=== PATIENT | female | born 1980 | race Caucasian/White ===

== ENCOUNTER 2020-06-01 20:44 | Emergency (ER) | payer SELFPAY ==
[2020-06-01] MEDS ORDERED: Penicillin V Potassium 250 MG TAB ONE ×2 (22:16)
== END 2020-06-01 23:01 | disposition home or self-care (01) ==
LOC: BURERS 20:44
DX: K04.7 Periapical abscess without sinus (principal); K06.8 Other specified disorders of gingiva and edentulous alveolar ridge; F17.210 Nicotine dependence, cigarettes, uncomplicated
CPT/HCPCS: 87081; 87430; 99283

== ENCOUNTER 2020-11-03 16:44 | Emergency (ER) | payer SELFPAY ==
[2020-11-03 17:33] LABS: Bilirubin Negative (Negative); Blood, Urine Negative (Negative); Clarity Clear (Clear); Glucose, Urine (Dipstick) Negative (Negative); Ketone, Urine Negative (Negative); Leukocyte Negative (Negative); Nitrite Negative (Negative); Protein, Urine (Dipstick) Negative (Neg-Trace); Specific Gravity, Urine 1.015 (1.005-1.030); Urobilinogen 0.2 mg/dL (Less than 2); pH, Urine 7.5 (5.0-9.0)
[2020-11-03 17:36] LABS: Pregnancy Test - Urine (BHCG) Negative (Negative); Pregu Control Background? CLEAR/WHITE (CLR/WHITE); Pregu Control Bar Appear? YES (CONTROL BAR); Specific Gravity 1.015 (1.002-1.036)
[2020-11-03 17:44] LABS: Amphetamine Not Detected (NotDetected); Barbiturates Screen Not Detected (NotDetected); Benzodiazepine Screen Not Detected (NotDetected); Cocaine Metabolite Screen Not Detected (NotDetected); Medtox Control Line Valid? VALID (VALID); Methadone Not Detected (NotDetected); Methamphetamine Not Detected (NotDetected); Opiate Screen Not Detected (NotDetected); Oxycodone Screen Not Detected (NotDetected); Phencyclidine (PCP) Not Detected (NotDetected); THC/Cannabinoid Screen Not Detected (NotDetected); Tricyclic Screen Not Detected (NotDetected)
[2020-11-03 17:53] LABS: #Basophils 0.1 thou/uL (0.0-0.2); #Eosinphils 0.6 thou/uL (0.0-0.7); #Lymphocytes 2.4 thou/uL (1.20-3.40); #Monocytes 0.8 thou/uL (0.11-0.59); #Neutrophils 5.8 thou/uL (1.40-6.50); %Basophils 1.3 % (0.0-1.0); %Lymphocytes 24.6 % (21.0-51.0); %Monocytes 8.5 % (0.0-10.0); %Neutrophils 59.5 % (42.0-75.0); Hemoglobin 13.1 g/dL (12.0-16.0); Mean Corpuscular HGB CONC 32.9 g/dL (32.0-36.0); Mean Corpuscular Hemoglobin 33.5 pg (27.0-31.0); Mean Platelet Volume 9.7 fL (7.4-10.4); Platelet Count 270 thou/uL (130-400); Red Blood Cell (RBC) Count 3.91 mill/uL (4.20-5.40); White Blood Cell (WBC) Count 9.8 thou/uL (4.8-10.8)
[2020-11-03 18:04] LABS: ALT (SGPT) 19 U/L (8-55); AST (SGOT) 14 U/L (5-34); Albumin 4.4 g/dL (3.5-5.0); Alkaline Phosphatase 85 U/L (40-110); Anion Gap 11 mmol/L (10-20); BUN (Urea Nitrogen) 10 mg/dL (7.0-18.7); Bilirubin, Total Less than 0.2 mg/dL (0.2-1.2); Calc. Creatinine Clearance 0 mL/min (70-130); Calcium 9.3 mg/dL (7.8-10.44); Carbon Dioxide 29 mmol/L (22-29); Chloride 106 mmol/L (98-107); Globulin 2.9 g/dL (2.4-3.5); Glucose 94 mg/dL (70-105); Potassium 4.1 mmol/L (3.5-5.1); Protein, Total 7.3 g/dL (6.0-8.3); Sodium 142 mmol/L (136-145)
[2020-11-04 01:53] LABS: SARS-CoV-2 PCR by NAA Not Detected (NotDetected)
== END 2020-11-03 18:28 | disposition home or self-care (01) ==
LOC: BURERS 16:44
DX: B34.9 Viral infection, unspecified (principal); Z20.822 Contact with and (suspected) exposure to COVID-19; F17.210 Nicotine dependence, cigarettes, uncomplicated
CPT/HCPCS: 36415; 71046; 80053; 80306; 81003; 81025; 85025; 87635; U0003; U0005

== ENCOUNTER 2021-09-30 15:44 | Emergency (ER) | payer SELFPAY ==
[2021-09-30] MEDS ORDERED: cefTRIAXone\\ROCEPHIN 500 MG VIAL ONE (16:47)
[2021-09-30 16:53] LABS: Bilirubin Negative (Negative); Blood, Urine Negative (Negative); Clarity Clear (Clear); Glucose, Urine (Dipstick) Negative (Negative); Ketone, Urine Negative (Negative); Leukocyte Trace (Negative); Nitrite Negative (Negative); Protein, Urine (Dipstick) Negative (Neg-Trace); Specific Gravity, Urine 1.015 (1.005-1.030); Urobilinogen 0.2 mg/dL (Less than 2)
[2021-09-30 16:57] LABS: Pregnancy Test - Urine (BHCG) Negative (Negative)
[2021-09-30 16:58] LABS: Pregu Control Background? CLEAR/WHITE (CLR/WHITE); Pregu Control Bar Appear? YES (CONTROL BAR); Specific Gravity 1.015 (1.002-1.036)
[2021-09-30 17:06] LABS: Bacteria/HPF Rare-Few HPF (None Seen); RBC/HPF 0-3 HPF (0-3); Squamous Epithelial 0-3 HPF (0-3); WBC/HPF 0-3 HPF (0-3)
== END 2021-09-30 17:32 | disposition home or self-care (01) ==
LOC: BURERS 15:44
DX: J02.9 Acute pharyngitis, unspecified (principal); N72 Inflammatory disease of cervix uteri
CPT/HCPCS: 81003; 81015; 81025; 87081; 87430; 96372; 99283; J0696

== ENCOUNTER 2021-10-10 01:54 | Emergency (ER) | payer SELFPAY | END 2021-10-10 02:34 | disposition home or self-care (01) | LOC: BURERS 01:54 | DX: B35.9 Dermatophytosis, unspecified (principal); B88.8 Other specified infestations | CPT/HCPCS: 99282 ==

== ENCOUNTER 2021-10-27 12:56 | Emergency (ER) | payer SELFPAY ==
[2021-10-27] MEDS ORDERED: cefTRIAXone\\ROCEPHIN 500 MG VIAL ONE (14:00)
[2021-10-27] MEDS ORDERED: Lidocaine 1% PF 5 ML VIAL ONE (14:00)
[2021-10-27] MEDS ORDERED: Azithromycin 250 MG TAB ONE (14:08)
[2021-10-27 14:19] LABS: Bilirubin Negative (Negative); Blood, Urine Negative (Negative); Clarity Clear (Clear); Glucose, Urine (Dipstick) Negative (Negative); Ketone, Urine Negative (Negative); Leukocyte Negative (Negative); Nitrite Negative (Negative); Pregnancy Test - Urine (BHCG) Negative (Negative); Pregu Control Background? CLEAR/WHITE (CLR/WHITE); Pregu Control Bar Appear? YES (CONTROL BAR); Protein, Urine (Dipstick) Negative (Neg-Trace); Specific Gravity 1.025 (1.002-1.036); Specific Gravity, Urine 1.025 (1.005-1.030); Urobilinogen 0.2 mg/dL (Less than 2)
[2021-10-28 18:27] LABS: Chlam.trachomatis by PCR,Urine Not Detected (NotDetected)
== END 2021-10-27 14:26 | disposition home or self-care (01) ==
LOC: BURERS 12:56
DX: N72 Inflammatory disease of cervix uteri (principal)
CPT/HCPCS: 81003; 81025; 87491; 87591; 96372; 99283; J0696

== ENCOUNTER 2021-11-27 06:51 | Emergency (ER) | payer SELFPAY ==
[2021-11-27 07:31] LABS: Bilirubin Small (Negative); Blood, Urine Large (Negative); Clarity Cloudy (Clear); Glucose, Urine (Dipstick) Negative (Negative); Ketone, Urine Trace mg/dL (Negative); Leukocyte Trace (Negative); Nitrite Negative (Negative); Pregnancy Test - Urine (BHCG) Negative (Negative); Pregu Control Background? CLEAR/WHITE (CLR/WHITE); Pregu Control Bar Appear? YES (CONTROL BAR); Protein, Urine (Dipstick) 100 mg/dL (Neg-Trace)
[2021-11-27 07:41] LABS: Bacteria/HPF Rare-Few HPF (None Seen); RBC/HPF Greater than 50 HPF (0-3); Squamous Epithelial 0-3 HPF (0-3)
[2021-11-27] MEDS ORDERED: Doxycycline 100 MG CAP ONE (07:44)
[2021-11-27] MEDS ORDERED: cefTRIAXone\\ROCEPHIN 1 GM VIAL ONE (07:44)
[2021-11-27] MEDS ORDERED: metroNIDAZOLE 500 MG/100 ML BAG ONE (07:44)
[2021-11-27] MEDS ORDERED: metroNIDAZOLE 250 MG TAB ONE (07:45)
== END 2021-11-27 08:08 | disposition home or self-care (01) ==
LOC: BURERS 06:51
DX: N72 Inflammatory disease of cervix uteri (principal)
CPT/HCPCS: 81003; 81015; 81025; 96372; 99283; J0696

== ENCOUNTER 2021-12-10 13:33 | Emergency (ER) | payer SELFPAY | END 2021-12-10 14:23 | disposition home or self-care (01) | LOC: BURERS 13:33 | DX: B34.9 Viral infection, unspecified (principal); F17.210 Nicotine dependence, cigarettes, uncomplicated | CPT/HCPCS: 99281 ==

== ENCOUNTER 2022-07-17 00:38 | Emergency (ER) | payer SELFPAY ==
[2022-07-17 01:22] LABS: Bilirubin Negative (Negative); Blood, Urine Trace (Negative); Clarity Clear (Clear); Glucose, Urine (Dipstick) Negative (Negative); Ketone, Urine Negative (Negative); Leukocyte Negative (Negative); Nitrite Negative (Negative); Protein, Urine (Dipstick) Negative (Neg-Trace); Urobilinogen 0.2 mg/dL (Less than 2)
[2022-07-17 01:31] LABS: Specific Gravity, Urine 1.023 (1.002-1.036)
[2022-07-17 01:33] LABS: Bacteria/HPF Rare-Few HPF (None Seen); Mucous/LPF None Seen LPF (<2+); RBC/HPF 0-3 HPF (0-3); WBC/HPF 0-3 HPF (0-3)
[2022-07-17] MEDS ORDERED: cefTRIAXone\\ROCEPHIN 500 MG VIAL ONE ×2 (01:58→02:02)
[2022-07-17] MEDS ORDERED: Lidocaine 1% PF 5 ML VIAL ONE (02:00)
[2022-07-17 04:28] LABS: Pregnancy Test - Urine (BHCG) Negative (Negative); Pregu Control Background? CLEAR/WHITE (CLR/WHITE); Pregu Control Bar Appear? YES (CONTROL BAR); Specific Gravity 1.023 (1.002-1.036)
[2022-07-17 16:48] LABS: Chlam.trachomatis by PCR,Urine Not Detected (NotDetected)
== END 2022-07-17 02:13 | disposition home or self-care (01) ==
LOC: BURERS 00:38
DX: N72 Inflammatory disease of cervix uteri (principal); F17.210 Nicotine dependence, cigarettes, uncomplicated
CPT/HCPCS: 81003; 81015; 81025; 87491; 87591; 96372; 99283; J0696

== ENCOUNTER 2025-05-06 09:13 | Emergency (ER) | payer OTHER ==
[2025-05-06] MEDS ORDERED: Azithromycin 250 MG TAB ONE (09:33)
[2025-05-06] MEDS ORDERED: cefTRIAXone (ROCEPHIN) 500 MG VIAL ONE (09:33)
== END 2025-05-06 10:14 | disposition home or self-care (01) ==
LOC: BURERS 09:13
DX: J02.9 Acute pharyngitis, unspecified (principal); F17.210 Nicotine dependence, cigarettes, uncomplicated; F17.290 Nicotine dependence, other tobacco product, uncomplicated
CPT/HCPCS: 87081; 87430; 96372; 99283; J0696